=== PATIENT | female | born 1930 | race Caucasian/White ===

== ENCOUNTER 2018-12-07 13:53 | Emergency (ER) | payer MEDICARE ==
--- NOTE | 2018-12-07 14:05 | UC ---
Laceration HPI - HPI Summary HPI Summary: 88 yo female presents accompanied by daughter for staple removal. Pt suffers from dementia, thus the history is provided by the daughter. She tells me that pt fell 1 week ago and was seen at an [place] (not [facility] [place] and had imaging which was normal. Had 1 staple placed to a small scalp laceration. Also, pt has been itching for years and has some excoriations and skin tears to her forearms due to this. - History Of Current Complaint Stated Complaint: SUTURE REMOVAL Time Seen by Provider: 12/07/18 14:03 Hx Obtained From: Family/Potato Inspector Hx From Patient Unobtainable Due To: Dementia Laceration Location: Head Mechanism Of Injury: Blunt Trauma - Allergies/Home Medications Allergies/Adverse Reactions: Allergies Allergy/AdvReac Type Severity Reaction Status Date / Time ciprofloxacin [From Cipro] Allergy Rash Verified 12/07/18 14:08 fentanyl Allergy Rash Verified 12/07/18 14:08 PMH/Surg Hx/FS Hx/Imm Hx Neurological History: Dementia - Surgical History Surgical History: Unable to Obtain/Confirm - daughter unsure - Family History Known Family History: Positive: Non-Contributory - Social History Occupation: Retired Lives: With Family Alcohol Use: None Substance Use Type: None Smoking Status (MU): Never Smoked Tobacco Review of Systems All Other Systems Reviewed And Are Negative: Yes Constitutional: Positive: Negative Skin: Positive: Other - One staple in place scalp. Excoriations b/l forearms Respiratory: Positive: Negative Cardiovascular: Positive: Negative Neurovascular: Positive: Negative Neurological: Positive: Negative Psychological: Positive: Negative Physical Exam - Summary Physical Exam Summary: GENERAL: NAD. WDWN. No pain distress. SKIN: Posterior scalp with [address] Laceration healed well with good approximation. No bleeding, drainage, or tenderness. B/L forearms scattered 5mm superficial skin avulsions due to itching and excoriations. No drainage, streaking, edema, erythema. CHEST: No accessory muscle use. Breathing comfortably and in no distress. CV: Pulses intact. Cap refill <2seconds NEURO: Alert. PSYCH: Age appropriate behavior. Triage Information Reviewed: Yes Vital Signs: Vital Signs: Temp Pulse Resp BP Pulse Ox 98 F 100 20 143/100 100 12/07/18 14:02 12/07/18 14:02 12/07/18 14:02 12/07/18 14:02 12/07/18 14:02 Vital Signs Reviewed: Yes Laceration Course/Dx - Course/Dx Course Of Treatment: 1 staple removed without difficulty. Skin avulsions/excoriations - neosporin applied and bandaged with telfa and kerlix. Advised to change dressings daily until well healed and f/u with PCP next week. - Diagnosis Provider Diagnosis: Removal of staple, Excoriation of forearm Discharge - Sign-Out/Discharge Documenting (check all that apply): Patient Departure All imaging exams completed and their final reports reviewed: No Studies - Discharge Plan Condition: Stable Disposition: HOME Patient Education Materials: Stitches Removal (ED) Referrals: No Primary Care Phys,NOPCP [Primary Care Provider] - Additional Instructions: If you develop a fever, shortness of breath, chest pain, new or worsening symptoms - please call your PCP or go to the ED immediately. Your blood pressure was high at todays visit. Please see your primary provider within 4 weeks for recheck and re-evaluation. - Billing Disposition and Condition Condition: STABLE Disposition: Home - Attestation Statements Provider Attestation: Per institutional requirements, I have reviewed the chart, however, I was not consulted specifically or made aware of this patient by the midlevel provider. I did not personally evaluate, interact with , or disposition this patient.
[2018-12-07 14:08] VITALS: BP 143/100
== END 2018-12-07 15:06 | disposition home or self-care (01) ==
LOC: UCEAST 13:53
DX: S01.01XD Laceration without foreign body of scalp, subsequent encounter (principal); W19.XXXD Unspecified fall, subsequent encounter; F03.90 Unspecified dementia, unspecified severity, without behavioral disturbance, psychotic disturbance, mood disturbance, and anxiety; F42.4 Excoriation (skin-picking) disorder
CPT/HCPCS: 99202; G0463